=== PATIENT | female | born 1955 | race Caucasian/White ===

== ENCOUNTER 2017-10-10 19:18 | Inpatient (IN) | payer MEDICAID ==
[~2017-10-10] VITALS: Ht 165.1 cm; Wt 74.4 kg
[2017-10-10 19:21] VITALS: BP 167/74
--- NOTE | 2017-10-10 19:30 | NUR ---
Dr. Hunt evaluating patient in triage room.
--- NOTE | 2017-10-10 19:31 | NUR ---
Called code brain.
--- NOTE | 2017-10-10 19:32 | NUR ---
Patient transferred to bed 12. RN evaluating patient at bedside.
--- NOTE | 2017-10-10 19:33 | NUR ---
pt presented er with c/o left side numbness x 2 days. assymetrical smile with left lip droop and left literature professor weaker on assessment. pt reports all symptoms started yesterday. pt stated she has a mild SHANNON. able to ambulate with little to no assistance. PMH: HTN, DM. DENIES N/V/D; SKIN IS PINK/WARM/DRY; AAOX4 WITH EVEN AND STEADY GAIT; HR EVEN AND REGULAR; PT DENIES ANY FEVER, CP, SOB, OR COUGH AT THIS TIME; PATIENT STATES PAIN OF 0/10 AT THIS TIME; VSS; PATIENT POSITIONED FOR COMFORT; HOB ELEVATED; BEDRAILS UP X2; BED DOWN. ER MD MADE AWARE OF PT STATUS.
--- NOTE | 2017-10-10 19:36 | NUR ---
Patient taken to CT scan via gurney by kal. Accompanied by RN and EMT.
--- NOTE | 2017-10-10 19:48 | NUR ---
Patient returned from CT scan. RN re-evaluating patient at bedside.
--- NOTE | 2017-10-10 20:08 | NUR ---
SPOKE TO DOMINICK FROM [facility] TO [facility] REPORT FOR CT. NOTIFIED
[2017-10-10 20:26] LABS: BASOPHILS % (AUTO) 0.4 % (0.0-2.0); EOSINOPHILS # (AUTO) 0.1 K/uL (0-0.4); EOSINOPHILS % (AUTO) 1.6 % (0.0-4.0); HEMATOCRIT 45.4 % (36-48); HEMOGLOBIN 15.4 g/dL (12.0-16.0); LYMPHOCYTES # (AUTO) 2.3 K/uL (2.5-16.5); LYMPHOCYTES % (AUTO) 28.2 % (20.5-51.1); MEAN CORPUSCULAR HEMOGLOBIN 30 pg (27-31); MEAN CORPUSCULAR HGB CONC 34 g/dL (33-37); MEAN CORPUSCULAR VOLUME 88.6 fL (80-94); MONOCYTES # (AUTO) 0.5 K/uL (0.8-1.0); MONOCYTES % (AUTO) 5.6 % (1.7-9.3); NEUTROPHILS # (AUTO) 5.3 K/uL (1.8-7.7); NEUTROPHILS % (AUTO) 64.2 % (42.2-75.2); PLATELET COUNT (AUTO) 300 K/uL (140-450); RED BLOOD CELL COUNT(AUTO) 5.13 MIL/uL (4.20-5.40); RED CELL DISTRIBUTION WIDTH 13.3 % (11.6-13.7); WHITE BLOOD COUNT (AUTO) 8.2 K/uL (4.8-10.8)
[2017-10-10 20:26] LABS: APPEARANCE,URINE CLEAR (CLEAR); BILIRUBIN,URINE NEGATIVE (NEGATIVE); BLOOD, URINE 1+ (NEGATIVE); COLOR,URINE YELLOW (YELLOW); LEUKOCYTE ESTERASE ,URINE NEGATIVE (NEGATIVE); NITRITE, URINE NEGATIVE (NEGATIVE); PH,URINE 5.5 (5.0-9.0); UGLUCOSE 2+ (NEGATIVE)
[2017-10-10 20:40] LABS: ANION GAP 9.9 (8-16); CARBON DIOXIDE 29.7 mmol/L (21-32); CREATININE 0.6 mg/dL (0.6-1.3); POTASSIUM 3.6 mmol/L (3.5-5.1)
[2017-10-10 20:43] LABS: PROTHROMBIN TIME 8.7 secs (10.8-13.4)
[2017-10-10 20:46] LABS: ALBUMIN 3.7 g/dL (3.4-5.0); TOTAL BILIRUBIN 0.3 mg/dL (0.0-1.0)
--- NOTE | 2017-10-10 21:25 | NUR ---
Marcella lund in [facility] - 10/10/17 at 2126 by ALEX PT GOING TO CT
[2017-10-10 21:27] LABS: CALCIUM OXALATE CRYSTALS,UR 0-10 /HPF (None Seen); RBC,URINE 0-5 (RARE) /HPF (0-5); WBC,URINE 0-5 (RARE) /HPF (0-5)
[2017-10-10] MEDS ORDERED: ASPIRIN 325 MG TAB PO ONE (21:50)
[2017-10-10] MEDS ORDERED: ACETAMINOPHEN 325 MG TAB PO PRN (21:55)
[2017-10-10] MEDS ORDERED: DEXTROSE 50% 50 ML SYR IVP PRN (21:55)
[2017-10-10] MEDS ORDERED: ONDANSETRON 4 MG/2 ML VIAL IVP PRN (21:55)
[2017-10-10] MEDS ORDERED: ZOLPIDEM 5 MG TAB PO PRN (21:55)
--- NOTE | 2017-10-10 22:09 | NUR ---
Dr. Darling evaluating patient at bedside.
[2017-10-10 22:40] VITALS: BP 136/68
[2017-10-10] MEDS ORDERED: MECLIZINE 25 MG TAB PO PRN (22:40)
--- NOTE | 2017-10-10 22:40 | NUR ---
Patient will be admitted to care of DR. ROSARIO. Admited to TELEMETRY. Will go to room 110A. Belongings list completed. Report to KYLE ROSENTHAL. PT VITALS STABLE.
--- NOTE | 2017-10-10 22:40 | NUR ---
PT ARRIVED AT UNIT VIA GURNEY FROM ED, PT AMBULATED TO BED, NO DISTRESS NOTED, TOLERATED WELL, REPORT RECEIVED FROM ED NURSE TAYA, IV TO R AC 20G PATENT, INTACT, SL, PT ON ROOM AIR, NO SOB, ORIENT PT TO BED, CALL LIGHT, ROOM, AND PHONE, PT STATED UNDERSTANDING, PUT PT ON FALL RISK PRECAUTION, MRSA SWAB TAKEN, INITIAL ASSESSMENT DONE, ALL SAFETY PRECAUTION MET, CALL LIGHT WITHIN REACH, WILL CONTINUE TO MONITOR.
--- NOTE | 2017-10-10 22:40 | NUR ---
Pt report given to KYLE BRANCH LENDING MANAGER. Transfer of care at this time. PT VITALS STABLE
[2017-10-10 22:44] LABS: FREE T4 (FREE THYROXINE) 0.93 ng/dL (0.76-1.46); MAGNESIUM 1.5 mg/dL (1.8-2.4); PHOSPHORUS 3.2 mg/dL (2.5-4.9); THYROID STIMULATING HORMONE 1.89 uIU/mL (0.34-3.74)
--- NOTE | 2017-10-10 23:10 | NUR ---
DR. ROGERS AT BEDSIDE EVALUATING PT.
[2017-10-10] MEDS ORDERED: MAG SULF 2000 MG/WATER PREMIX 50 ML IV ONE (23:40)
[2017-10-10] MEDS ORDERED: NICOTINE TRANSD SYS 14 MG/24 HR PATCH TD PRN (23:45)
[2017-10-11] VITALS (8 sets, daily range): BP systolic 112–158; BP diastolic 61–82
--- NOTE | 2017-10-11 00:06 | NUR ---
ORTHOSTATIC BLOOD PRESSURE TAKEN, PT TOLERATED WELL, BP STANDING 145/82, SITTING DOWN 127/65, LAYING DOWN 134/70, LEFT PT RESTING, NO DISTRESS NOTED, CALL LIGHT WITHIN REACH, WILL CONTINUE TO MONITOR.
[2017-10-11] MEDS: NACL 0.9% 1,000 ML IV SCH ×2 (00:10→21:23)
--- NOTE | 2017-10-11 00:11 | NUR ---
DUE MEDICATION ADMINISTERED PT TOLERATED WELL, NO DISTRESS NOTED, CALL LIGHT WITHIN REACH, WILL CONTINUE TO MONITOR.
--- NOTE | 2017-10-11 02:09 | NUR ---
CHECKED ON PT, PT RESTING ON BED, STATED THAT SHE CAN NOT SLEEPING, NO DISTRESS NOTED, CALL LIGHT WITHIN REACH, WILL CONTINUE TO MONITOR.
--- NOTE | 2017-10-11 02:11 | NUR ---
TALKED TO DR. ROGERS REGARDING PT LIPASE IS HIGH, STATED UNDERSTANDING, NO CHANGES IN ORDERS.
--- NOTE | 2017-10-11 03:02 | NUR ---
CALLED AND TALKED TO DR. MOSCOSO REGARDING PT, PT STATED SHE IS FEELING PAIN 8/10 HEADACHE AND ARTHRITIC PAIN, STATED UNDERSTANDING AND WILL PUT IN ORDER FOR AMOR, AWAITING FOR DR. KUMAR, AND WILL CONTINUE WITH ORDERS.
[2017-10-11] MEDS ORDERED: HYDROcodone/APAP 7.5/325 MG 1 TAB PO PRN (03:05)
--- NOTE | 2017-10-11 03:09 | NUR ---
PAIN MEDICATION ADMINISTERED PER MD ORDER, PT TOLERATED WELL, NO DISTRESS NOTED, CALL LIGHT WITHIN REACH, WILL CONTINUE TO MONITOR.
--- NOTE | 2017-10-11 04:11 | NUR ---
CHECKED ON PT, PT SLEEPING, V/S TAKEN WNL, PT RESTING, NO DISTRESS NOTED, CALL LIGHT WITHIN REACH, WILL CONTINUE TO MONITOR.
[2017-10-11] MEDS ORDERED: METF1000 PO (06:16)
[2017-10-11] MEDS ORDERED: INSU100S53 SC (06:16)
[2017-10-11] MEDS ORDERED: GLIP10TA3 PO (06:16)
[2017-10-11] MEDS ORDERED: BENA20TA PO (06:16)
--- NOTE | 2017-10-11 06:17 | NUR ---
PATIENT HAS BEEN SCREENED AND CATEGORIZED MODERATE NUTRITION RISK. PATIENT WILL BE SEEN WITHIN 3-5 DAYS OF ADMISSION. 10/13/17-10/15/17 LAUREL SAAVEDRA MS, RDN
[2017-10-11] MEDS: BLOOD GLUCOSE MONITORING 1 DEV DEV FS SCH ×4 (06:29→21:10)
--- NOTE | 2017-10-11 06:30 | NUR ---
PT AMBULATED TO RESTROOM AND BACK TO BED, NO DISTRESS NOTED, CALL LIGHT WITHIN REACH, WILL CONTINUE TO MONITOR.
[2017-10-11 07:01] LABS: BASOPHILS % (AUTO) 0.3 % (0.0-2.0); EOSINOPHILS # (AUTO) 0.2 K/uL (0-0.4); EOSINOPHILS % (AUTO) 2.3 % (0.0-4.0); HEMATOCRIT 43.6 % (36-48); HEMOGLOBIN 14.8 g/dL (12.0-16.0); LYMPHOCYTES # (AUTO) 2.9 K/uL (2.5-16.5); LYMPHOCYTES % (AUTO) 34.8 % (20.5-51.1); MEAN CORPUSCULAR HEMOGLOBIN 30 pg (27-31); MEAN CORPUSCULAR HGB CONC 34 g/dL (33-37); MEAN CORPUSCULAR VOLUME 89.3 fL (80-94); MONOCYTES # (AUTO) 0.6 K/uL (0.8-1.0); MONOCYTES % (AUTO) 6.6 % (1.7-9.3); NEUTROPHILS # (AUTO) 4.7 K/uL (1.8-7.7); PLATELET COUNT (AUTO) 277 K/uL (140-450); RED BLOOD CELL COUNT(AUTO) 4.88 MIL/uL (4.20-5.40); RED CELL DISTRIBUTION WIDTH 13.5 % (11.6-13.7); WHITE BLOOD COUNT (AUTO) 8.4 K/uL (4.8-10.8)
--- NOTE | 2017-10-11 07:20 | NUR ---
RECEIVED REPORT FROM CRIME VICTIM SPECIALIST NURSE. PT IS RESTING IN BED, AAOX4, AMBULATES WITH ASSIST, IV IS ON THE RIGHT AC, PATENT, INTACT, FLUSHING WELL, PT IS ON ROOM AIR, NO S/S OF RESPIRATORY DISTRESS OR DISCOMFORT NOTED, DISCUSSED PLAN OF CARE WITH PT, PT VERBALIZED UNDERSTANDING, SAFETY/FALL PRECAUTIONS ARE IN PLACE, CALL LIGHT IS WITHIN REACH, WILL CONTINUE TO MONITOR.
--- NOTE | 2017-10-11 07:20 | NUR ---
ENDORSED PT TO DAY SHIFT NURSE GIOVANNA ROSENTHAL, PT STABLE, NO DISTRESS NOTED, CALL LIGHT WITHIN REACH.
[2017-10-11 07:46] LABS: ANION GAP 9.3 (8-16); CARBON DIOXIDE 31.2 mmol/L (21-32); CREATININE 0.5 mg/dL (0.6-1.3); POTASSIUM 3.5 mmol/L (3.5-5.1)
[2017-10-11 07:59] LABS: CHOL/HDL RATIO 4.8 (1-4.5); MAGNESIUM 2.1 mg/dL (1.8-2.4); PHOSPHORUS 4.1 mg/dL (2.5-4.9)
[2017-10-11] MEDS: glipiZIDE 10 MG TAB PO SCH ×2 (08:57→17:00)
[2017-10-11] MEDS: metFORMIN 500 MG TAB PO SCH ×2 (08:57→21:09)
[2017-10-11] MEDS: DOCUSATE SODIUM 100 MG GELCAP PO SCH ×2 (08:57→21:09)
[2017-10-11] MEDS: BENAZEPRIL 20 MG TAB PO SCH (08:58)
[2017-10-11] MEDS: NICOTINE TRANSD SYS 14 MG/24 HR PATCH TD SCH (08:59)
[2017-10-11] MEDS ORDERED: ATORVASTATIN 20 MG TAB PO SCH (09:00)
[2017-10-11] MEDS: INSULIN LANTUS 100 UNITS/ML 10 ML VIAL SUBQ SCH (09:00)
--- NOTE | 2017-10-11 10:40 | NUR ---
PATIENT'S FAMILY IS AT BEDSIDE AT THIS TIME, UPDATED PATIENT'S GRAND DAUGHTER (ZAY) ON THE CURRENT PLAN OF CARE. ZAY SAID SHE WOULD BE LEAVING OUT OF TOWN BUT WOULD BE BACK ON Friday10/13/17. ZAY LEFT HER PHONE NUMBER IN CASE THEIR ARE ANY CHANGES IN HER PLAN OF CARE OR PATIENT'S DAUGHTER JEWELS ..
[2017-10-11] MEDS: INSULIN LISPRO SLIDING SCALE 100 UNITS/ML VIAL SUBQ PRN ×3 (12:10→21:12)
--- NOTE | 2017-10-11 14:24 | NUR ---
FAXED OVER MRI MEDICAL HISTORY TO [facility] AT [phone]. FAX CONFIRMATION RECEIVED. I CALLED [employer] AT [phone], REACHED VOICEMAIL, I LEFT A MESSAGE LETTING THEM KNOW I WAS CALLING FROM [facility] TO INFORM THEM I HAD FAXED OVER THE MRI PAPERWORK. I LEFT NAME AND NUMBER FOR A CALL BACK.
--- NOTE | 2017-10-11 17:19 | NUR ---
WILL HOLD GLIPIZIDE. PT SCHEDULED FOR MRI OF THE BRAIN WITH CONTRAST AT [facility] TODAY.
--- NOTE | 2017-10-11 17:50 | NUR ---
PATIENT PICKED UP BY ABBY AND TAKEN TO [facility] FOR MRI OF THE BRAIN. PT LEFT IN STABLE CONDITION WITH IV ON THE RIGHT AC, HEP LOCK. CALLED [facility] AT [phone] TO LET THEM KNOW PATIENT WAS ON HER WAY.
--- NOTE | 2017-10-11 19:12 | NUR ---
ENDORSED PT TO SECRETARY OF POLICE NURSE FOR CONTINUITY OF CARE. PT HAS NOT RETURNED FROM [facility] AT THIS TIME.
--- NOTE | 2017-10-11 19:13 | NUR ---
RECEIVED BEDSIDE REPORT FROM DAY SHIFT NURSE GIOVANNA ROSENTHAL, PT IS STILL OFF THE UNIT HAVING A PROCEDURE DONE (MRI) AT [facility].
--- NOTE | 2017-10-11 20:10 | NUR ---
PT ARRIVED BACK AT UNIT VIA GURNEY, NO DISTRESS NOTED, IV TO R AC 20G PATENT, INTACT, SL, PT ON ROOM AIR NO SOB, INITIAL ASSESSMENT DONE, ALL SAFETY PRECAUTION MET, WILL CONTINUE TO MONITOR.
--- NOTE | 2017-10-11 20:33 | NUR ---
RESULT OF MRI CAME BACK, CORRECTIONAL SUPERVISING COOK CALLED, REPORTED RESULT TO DR. OSORIO , DR STATED UNDERSTANDING.
--- NOTE | 2017-10-11 21:12 | NUR ---
DUE MEDICATION ADMINISTERED, PT TOLERATED WELL, NO DISTRESS NOTED, CALL LIGHT WITHIN REACH, WILL CONTINUE TO MONITOR.
--- NOTE | 2017-10-11 23:44 | NUR ---
CHECKED ON PT, PT SLEEPING, NO DISTRESS NOTED, CALL LIGHT WITHIN REACH, WILL CONTINUE TO MONITOR.
[2017-10-12] VITALS: BP 113/52
[2017-10-12 04:00] VITALS: BP 148/83
--- NOTE | 2017-10-12 04:10 | NUR ---
PT AMBULATED TO RESTROOM THEN BACK TO BED. V/S TAKEN, WNL, PT RESTING, NO DISTRESS NOTED, CALL LIGHT WITHIN REACH, WILL CONTINUE TO MONITOR.
[2017-10-12] MEDS: BLOOD GLUCOSE MONITORING 1 DEV DEV FS SCH ×4 (06:25→20:34)
[2017-10-12] MEDS: INSULIN LISPRO SLIDING SCALE 100 UNITS/ML VIAL SUBQ PRN ×4 (06:28→20:31)
--- NOTE | 2017-10-12 07:20 | NUR ---
ENDORSED PT TO DAY SHIFT NURSE GIOVANNA ROSENTHAL, PT STABLE, NO DISTRESS NOTED, CALL LIGHT WITHIN REACH.
--- NOTE | 2017-10-12 07:25 | NUR ---
RECEIVED REPORT FROM AUTOMATIC MOUNTER NURSE. PT IS AWAKE AND RESTING IN BED, AAOX4, AMBULATES WITH ASSIST, IV IS ON THE RIGHT AC, PATENT, INTACT, FLUSHING WELL, PT IS ON ROOM AIR, NO S/S OF RESPIRATORY DISTRESS OR DISCOMFORT NOTED, DISCUSSED PLAN OF CARE WITH PT, PT VERBALIZED UNDERSTANDING, SAFETY/FALL PRECAUTIONS ARE IN PLACE, CALL LIGHT IS WITHIN REACH, WILL CONTINUE TO MONITOR.
[2017-10-12 07:28] LABS: BASOPHILS % (AUTO) 0.6 % (0.0-2.0); EOSINOPHILS # (AUTO) 0.2 K/uL (0-0.4); EOSINOPHILS % (AUTO) 2.4 % (0.0-4.0); HEMOGLOBIN 13.9 g/dL (12.0-16.0); LYMPHOCYTES # (AUTO) 2.7 K/uL (2.5-16.5); LYMPHOCYTES % (AUTO) 36.9 % (20.5-51.1); MEAN CORPUSCULAR HEMOGLOBIN 31 pg (27-31); MEAN CORPUSCULAR HGB CONC 34 g/dL (33-37); MONOCYTES # (AUTO) 0.4 K/uL (0.8-1.0); MONOCYTES % (AUTO) 5.8 % (1.7-9.3); NEUTROPHILS # (AUTO) 3.9 K/uL (1.8-7.7); NEUTROPHILS % (AUTO) 54.3 % (42.2-75.2); PLATELET COUNT (AUTO) 260 K/uL (140-450); RED BLOOD CELL COUNT(AUTO) 4.56 MIL/uL (4.20-5.40); RED CELL DISTRIBUTION WIDTH 13.5 % (11.6-13.7); WHITE BLOOD COUNT (AUTO) 7.2 K/uL (4.8-10.8)
[2017-10-12 08:00] VITALS: BP 166/73
[2017-10-12 08:12] LABS: ANION GAP 7.5 (8-16); CREATININE 0.5 mg/dL (0.6-1.3); POTASSIUM 3.5 mmol/L (3.5-5.1)
[2017-10-12] MEDS: metFORMIN 500 MG TAB PO SCH ×2 (08:22→20:27)
[2017-10-12] MEDS: DOCUSATE SODIUM 100 MG GELCAP PO SCH ×2 (08:22→20:27)
[2017-10-12] MEDS: BENAZEPRIL 20 MG TAB PO SCH (08:22)
[2017-10-12] MEDS: glipiZIDE 10 MG TAB PO SCH ×2 (08:23→17:18)
--- NOTE | 2017-10-12 08:23 | NUR ---
DUE MEDICATIONS GIVEN, PT TOLERATED WELL. NO S/S OF RESPIRATORY DISTRESS NOTED, CALL LIGHT WITHIN REACH.
[2017-10-12] MEDS: INSULIN LANTUS 100 UNITS/ML 10 ML VIAL SUBQ SCH (08:24)
--- NOTE | 2017-10-12 09:00 | NUR ---
INFORMED DR. SPAULDING PATIENT WAS COMPLAINING OF CONSTIPATION. PER DR. SPAULDING SHE WILL PUT IN ORDER FOR DULCOLAX SUPPOSITORY.
[2017-10-12] MEDS ORDERED: BISACODYL 10 MG SUPP RC SCH (09:45)
[2017-10-12] MEDS: NICOTINE TRANSD SYS 14 MG/24 HR PATCH TD SCH (09:50)
--- NOTE | 2017-10-12 11:45 | NUR ---
PT IS SITTING UP IN BED, NO S/S OF RESPIRATORY DISTRESS OR DISCOMFORT NOTED.
[2017-10-12 12:00] VITALS: BP 139/65
--- NOTE | 2017-10-12 14:44 | NUR ---
PT IS SLEEPING IN BED AT THIS TIME, CALL LIGHT WITHIN REACH.
[2017-10-12] MEDS: NACL 0.9% 1,000 ML IV SCH ×2 (15:46→20:00)
[2017-10-12 16:00] VITALS: BP 164/75
--- NOTE | 2017-10-12 19:19 | NUR ---
ENDORSED PT TO DEVELOPMENTAL EDUCATION INSTRUCTOR NURSE FOR CONTINUITY OF CARE. PT STABLE AT THIS TIME.
--- NOTE | 2017-10-12 19:20 | NUR ---
RECEIVED PATIENT AWAKE ON BED, SWEDISH SPEAKING PATIENT. FALL PRECAUTION APPLIED. EXPLAINED PLAN OF CARE THROUGH SWEDISH SPEAKING STAFF. WILL CONTINUE TO MONITOR.
[2017-10-12 20:00] VITALS: BP 130/66
[2017-10-13] VITALS: BP 141/79
--- NOTE | 2017-10-13 00:05 | NUR ---
SEEN PATIENT ASLEEP, V/S TAKEN AND RECORDED. NO S/S OF DISTRESS NOTED. CALL LIGHT WITHIN REACH. WILL CONTINUE TO MONITOR.
--- NOTE | 2017-10-13 01:06 | NUR ---
SEEN PATIENT ASLEEP, V/S TAKEN AND RECORDED. NO S/S OF DISTRESS NOTED. CALL LIGHT WITHIN REACH. WILL CONTINUE TO MONITOR.
--- NOTE | 2017-10-13 02:30 | NUR ---
SEEN PATIENT RESTING ON BED. NO S/S OF DISTRESS NOTED. CALL LIGHT WITHIN REACH. WILL CONTINUE TO MONITOR.
[2017-10-13 04:00] VITALS: BP 127/74
[2017-10-13 06:32] LABS: BASOPHILS % (AUTO) 0.4 % (0.0-2.0); EOSINOPHILS # (AUTO) 0.2 K/uL (0-0.4); EOSINOPHILS % (AUTO) 2.4 % (0.0-4.0); HEMATOCRIT 41.9 % (36-48); HEMOGLOBIN 14.4 g/dL (12.0-16.0); LYMPHOCYTES # (AUTO) 2.8 K/uL (2.5-16.5); LYMPHOCYTES % (AUTO) 38.1 % (20.5-51.1); MEAN CORPUSCULAR HEMOGLOBIN 31 pg (27-31); MEAN CORPUSCULAR HGB CONC 34 g/dL (33-37); MEAN CORPUSCULAR VOLUME 88.7 fL (80-94); MONOCYTES # (AUTO) 0.5 K/uL (0.8-1.0); MONOCYTES % (AUTO) 6.2 % (1.7-9.3); NEUTROPHILS # (AUTO) 3.9 K/uL (1.8-7.7); NEUTROPHILS % (AUTO) 52.9 % (42.2-75.2); PLATELET COUNT (AUTO) 276 K/uL (140-450); RED BLOOD CELL COUNT(AUTO) 4.72 MIL/uL (4.20-5.40); RED CELL DISTRIBUTION WIDTH 13.2 % (11.6-13.7); WHITE BLOOD COUNT (AUTO) 7.4 K/uL (4.8-10.8)
[2017-10-13] MEDS: INSULIN LISPRO SLIDING SCALE 100 UNITS/ML VIAL SUBQ PRN (06:48)
[2017-10-13 06:53] LABS: CARBON DIOXIDE 30.6 mmol/L (21-32); CREATININE 0.5 mg/dL (0.6-1.3); POTASSIUM 3.6 mmol/L (3.5-5.1)
--- NOTE | 2017-10-13 07:15 | NUR ---
ENDORSED PATIENT TO AM SHIFT NURSE AT BEDSIDE FOR CONTINUITY OF CARE. PATIENT IN STABLE CONDITION.
--- NOTE | 2017-10-13 07:30 | NUR ---
RECEIVED PT FROM PM NURSE. PT SLEEPING BUT AROUSABLE. ON ROOM AIR, NO S/S OF RESPIRATORY DISTRESS NOTED. IV SITE INTACT AND PATENT RUNNING NS AT 50 MLS/HR. PT ABLE TO MOVE ALL HER EXTREMITIES. POC EXPLAINED TO PT, PT VERBALIZED UNDERSTANDING, CALL LIGHT IN REACH, WILL CONTINUE TO MONITOR.
[2017-10-13] MEDS: BLOOD GLUCOSE MONITORING 1 DEV DEV FS SCH (07:42)
[2017-10-13 08:00] VITALS: BP 140/68
[2017-10-13] MEDS ORDERED: ELA25 PO (09:05)
[2017-10-13] MEDS: BENAZEPRIL 20 MG TAB PO SCH (09:42)
[2017-10-13] MEDS: glipiZIDE 10 MG TAB PO SCH (09:42)
[2017-10-13] MEDS: DOCUSATE SODIUM 100 MG GELCAP PO SCH (09:42)
[2017-10-13] MEDS: metFORMIN 500 MG TAB PO SCH (09:42)
[2017-10-13] MEDS: NICOTINE TRANSD SYS 14 MG/24 HR PATCH TD SCH (09:44)
[2017-10-13] MEDS: INSULIN LANTUS 100 UNITS/ML 10 ML VIAL SUBQ SCH (09:49)
--- NOTE | 2017-10-13 10:00 | NUR ---
ASSISTED PT TO BATH ROOM, PT TOLERATED WELL.
[2017-10-13] MEDS ORDERED: GLIP10TA3 PO (11:16)
[2017-10-13] MEDS ORDERED: NICO14TD30 TD (11:16)
--- NOTE | 2017-10-13 11:25 | NUR ---
PT AWAKE, ALERT. ON ROOM AIR, NO S/S OF RESPIRATORY DISTRESS NOTED. SIGNED DISCHARGE PAPER. DISCHARGE INSTRUCTIONS GIVEN, PT VERBALIZED UNDERSTANDING SHE WILL VISIT HER PCP IN 7 DAYS. IV REMOVED. PT ABLE TO AMBULATE, WAITING FOR HER FRIEND TO PICK HER UP. PT REFUSED PNS VACCINE.
--- NOTE | 2017-10-13 12:30 | NUR ---
DR. DIANA USED BLUE PHONE TO EXPLAINED TO PT REGARDING PT MEDICAL SITUATION. TUFTER OPERATOR ID [id number]
--- NOTE | 2017-10-13 12:50 | NUR ---
USING WHEELCHAIR TO TAKE PT TO PARKING LOT, PT'S FRIEND GAVE PT A RIDE. ALL PERSONAL BELONGINGS WITH PT, ALL QUESTIONS ANSWERED PRIOR TO DISCHARGE. PT DISCHARGE IN A STABLE CONDITION. PRESCRIPTION WITH PT, PT VERBALIZED SHE WILL GO TO GET MEDICATION AND VISIT PCP.
--- NOTE | 2017-10-14 10:12 | NUR ---
Process Control Engineer Note: Late entry for 10/13/17: I met with patient at bedside. Patient speaks Romansh. Per patient, she lives at home with her Nito Foss and plans to return there upon discharge. She goes to [facility] for her medical care and does not have any difficulty filling her prescriptions. She stated [facility] has a pharmacy. She pays between $20-$25 co-pay for appt at [facility]. I inquired about the stress she reported experiencing. She stated one of her sons committed suicide when he was 16 years old and her other son was murdered in [place] She denied HI and SI. She reported she use to follow up with a therapist a long time ago and is considering following up with a therapist once again. I provided her with a list of counseling/mental health services. She thanked me and stated she did not have any questions or concerns at this time.
== END 2017-10-13 12:50 | disposition home or self-care (01) | DRG 48 ==
LOC: MED 19:18 → MTU 21:55
PROVIDERS: ADMIT General Practice; ATTEND General Practice
DX: G90.9 Disorder of the autonomic nervous system, unspecified (principal); D68.59 Other primary thrombophilia; E11.65 Type 2 diabetes mellitus with hyperglycemia; E83.42 Hypomagnesemia; E87.1 Hypo-osmolality and hyponatremia; K86.1 Other chronic pancreatitis; I10 Essential (primary) hypertension; F17.200 Nicotine dependence, unspecified, uncomplicated; E66.3 Overweight; Z68.27 Body mass index [BMI] 27.0-27.9, adult; M19.90 Unspecified osteoarthritis, unspecified site; Z90.710 Acquired absence of both cervix and uterus; E78.1 Pure hyperglyceridemia; G43.909 Migraine, unspecified, not intractable, without status migrainosus
CPT/HCPCS: 36415; 70450; 71045; 76700; 80048; 80053; 81001; 82150; 82948; 83036; 83690; 83735; 83880; 84100; 84439; 84443; 84484; 85025; 85610; 85730; 86886; 86900; 86901; 87081; 93005; 93880; 93925; 93970; 97110; 97116; 97140; 97530; 97535; 99285; J1815; J3475; J7030; Q0092